=== PATIENT | female | born 1955 | race Caucasian/White ===

== ENCOUNTER → 2020-11-29 | Outpatient (CLI) | payer BC | END | disposition home or self-care (01) | LOC: RAH 14:44 | PROVIDERS: ATTEND Family Medicine Sports Medicine | DX: M51.36 Other intervertebral disc degeneration, lumbar region (principal); M48.061 Spinal stenosis, lumbar region without neurogenic claudication; M48.07 Spinal stenosis, lumbosacral region | CPT/HCPCS: 72148 ==

== ENCOUNTER 2021-01-06 11:51 | Day surgery (SDC) | payer BC ==
[~2021-01-06 11:51] MED LIST: ASCO1TAB46 PO; ATOR10TA69 PO; BACL10TA PO; BIOT10005 PO; CETI10TA57 PO; CHOL100040 PO; CYAN-52 PO; FOLI0.4T6 PO; GABA-529 PO; HYDR25TA PO; IBUP-2077 PO; LOSA100T58 PO; MAGN400C PO; METF-446 PO; MULT-1367 PO; ORPH1TAB PO; POTA99TA21 PO; TAMO20TA4 PO; [UNRECOGNIZED DRUG - CODE] PO; [UNRECOGNIZED DRUG - OTHER] PO; glucosamine PO
[2021-01-06] MEDS ORDERED: SODIUM CHLORIDE 0.9% 1000ML 1,000 ML IV ONE (11:57)
[2021-01-06] MEDS ORDERED: LIDOCAINE HCL MPF 1% 5ML VIAL ONE (12:36)
[2021-01-06] MEDS ORDERED: DEXAMETHASONE SOD PHOSPHATE 4 MG/ML 1ML VIAL ONE (12:36)
[2021-01-06 12:41] VITALS: BP 151/88
[2021-01-06] MEDS ORDERED: IOPAMIDOL 10 ML VIAL ONE (12:49)
[2021-01-06 13:15] VITALS: BP 135/49
[2021-01-06 13:35] VITALS: BP 172/65
[2021-01-06 13:45] VITALS: BP 162/74
== END 2021-01-06 13:50 | disposition home or self-care (01) ==
LOC: DAH 11:51
PROVIDERS: ATTEND Family Medicine Sports Medicine
DX: M51.16 Intervertebral disc disorders with radiculopathy, lumbar region (principal); G89.29 Other chronic pain; Z20.822 Contact with and (suspected) exposure to COVID-19; M43.16 Spondylolisthesis, lumbar region; M48.07 Spinal stenosis, lumbosacral region; E11.9 Type 2 diabetes mellitus without complications; I10 Essential (primary) hypertension; M19.90 Unspecified osteoarthritis, unspecified site; Z90.13 Acquired absence of bilateral breasts and nipples; Z88.0 Allergy status to penicillin; Z79.84 Long term (current) use of oral hypoglycemic drugs; Z79.899 Other long term (current) drug therapy; Z98.890 Other specified postprocedural states
CPT/HCPCS: 62323; 82948; A4223; A4606; C9803; J1100; J3490; J7030; Q9966; U0003; 62320; 77003